=== PATIENT | female | born 1975 | race Native Hawaiian/Other Pacific Islander ===

== ENCOUNTER 2021-02-10 14:47 | Emergency (ER) | payer OTHER ==
[~2021-02-10] VITALS: Ht 165.1 cm; Wt 66.2 kg
[2021-02-10 14:57] VITALS: TEMP 98.4
[2021-02-10] MEDS ORDERED: VENLAFAXINE150 M1 PO (15:02)
[2021-02-10] MEDS ORDERED: LISI20TA11 PO (15:03)
[2021-02-10] MEDS ORDERED: MYRBETRIQ25 MG PO (15:03)
[2021-02-10] MEDS ORDERED: HYDR25CA25 PO (15:04)
[2021-02-10 16:04] LABS: PLATELET COUNT 336 K/uL (152-353)
[2021-02-10 16:06] LABS: POTASSIUM 3.5 mmol/L (3.6-5.2)
[2021-02-10 17:46] VITALS: BP 148/98
== END 2021-02-10 17:46 | disposition home or self-care (01) ==
LOC: ED 14:47
PROVIDERS: Emergency Medicine Emergency Medical Services
DX: I89.1 Lymphangitis (principal); D64.89 Other specified anemias; F17.210 Nicotine dependence, cigarettes, uncomplicated
CPT/HCPCS: 80053; 85027; 87651; 96360; 96365; 96375; 99284; J0696; J1100

== ENCOUNTER 2021-02-24 11:44 | Observation (INO) | payer OTHER ==
[~2021-02-24] VITALS: Ht 167.6 cm; Wt 65.4 kg
[2021-02-24] VITALS (9 sets, daily range): BP systolic 117–153; BP diastolic 81–112; TEMP 97–98.4; Ht 167.6 cm; Wt 65.4 kg
[~2021-02-24 11:44] MED LIST: HYDR25CA25 PO; LISI20TA11 PO; MYRBETRIQ25 MG PO; VENLAFAXINE150 M1 PO
[2021-02-24 12:30] LABS: PLATELET COUNT 404 K/uL (152-353)
[2021-02-24 12:40] LABS: POTASSIUM 3.9 mmol/L (3.6-5.2)
[2021-02-24 12:48] LABS: PARTIAL THROMBOPLASTIN TIME 26.5 SECONDS (24.5-33.6)
[2021-02-24] MEDS ORDERED: HYDRALAZINE25 MG PO (20:27)
[2021-02-25 03:50] VITALS: BP 148/95; TEMP 98.1
[2021-02-25 07:50] VITALS: BP 100/90; TEMP 97.9
[2021-02-25] MEDS ORDERED: METO-837 PO (09:34)
[2021-02-25] MEDS ORDERED: ROSU10TA PO (09:36)
== END 2021-02-25 11:10 | disposition home or self-care (01) ==
LOC: ED 11:44 → MED/SURG 13:45
PROVIDERS: Hospitalist; ADMIT Internal Medicine Endocrinology, Diabetes & Metabolism; ATTEND Internal Medicine Endocrinology, Diabetes & Metabolism
DX: R07.89 Other chest pain (principal); Z86.73 Personal history of transient ischemic attack (TIA), and cerebral infarction without residual deficits; K21.9 Gastro-esophageal reflux disease without esophagitis; E78.49 Other hyperlipidemia; I10 Essential (primary) hypertension; F32.A Depression, unspecified; I73.89 Other specified peripheral vascular diseases
CPT/HCPCS: 36415; 80053; 80061; 82550; 83880; 84484; 85027; 85610; 85730; 87635; 93005; 96372; 96374; 96375; 99220; 99284; G0378; J0360; J1650; J2405; U0003